=== PATIENT | male | born 1970 | race Caucasian/White ===

== ENCOUNTER 2021-01-08 05:59 | Emergency (ER) | payer SELFPAY ==
--- NOTE | 2021-01-08 06:26 | ER ---
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 Coronavirus screen: At this time, the client does not indicate any symptoms associated with coronavirus-19. Ebola Screen: No symptoms or risks identified at this time. Mechanism of Injury: No Mechanism of Injury. Initial Sepsis Screen: Does the patient meet any 2 criteria? No. Patient's initial sepsis screen is negative. Does the patient have a suspected source of infection? No. Patient's initial sepsis screen is negative. Risk Assessment: Do you want to hurt yourself or someone else? Patient reports no desire to harm self or others. Onset of symptoms was January 07, 2021. 06:13 Method Of Arrival: Ambulatory bb 06:13 Acuity: DENISE 2 bb Historical: - Allergies: 06:17 No Known Allergies; bb - Home Meds: 06:17 penicillian injections [Active]; bb - PMHx: 06:17 syphilis; bb - PSHx: 06:17 shoulder surgery; arm surgery; bb - Immunization history:: Adult Immunizations up to date. - Social history:: Smoking status: Patient denies any tobacco usage or history of. Patient/guardian denies using alcohol, street drugs. - Family history:: not pertinent. - Hospitalizations: : No recent hospitalization is reported. Screenin:25 Abuse screen: Denies threats or abuse. Denies injuries from another. Nutritional mg2 screening: No deficits noted. Tuberculosis screening: No symptoms or risk factors identified. Fall Risk None identified. Assessment: 06:20 General: Appears in no apparent distress. uncomfortable, Behavior is calm, cooperative, jb4 appropriate for age. Pain: Complains of pain in left eye Pain does not radiate. Pain currently is 9 out of 10 on a pain scale. Quality of pain is described as burning. Neuro: Level of Consciousness is awake, alert, obeys commands, Oriented to person, place, time, situation. Cardiovascular: Patient's skin is warm and dry. Respiratory: Airway is patent Respiratory effort is even, unlabored, Respiratory pattern is regular, symmetrical. GI: No signs and/or symptoms were reported involving the gastrointestinal system. : No signs and/or symptoms were reported regarding the genitourinary system. EENT: Eyes no drainage noted.. Sclera/Cornea are reddened in outer aspect of conjuctiva of left eye, iris of left eye and inner aspect of conjunctiva of left eye. Derm: Skin is intact, Skin is pink, warm \T\ dry. Musculoskeletal: Circulation, motion, and sensation intact. Range of motion: intact in all extremities. Vital Signs: 06:13 BP 126 / 87; Pulse 81; Resp 16 S; Temp 98.1(O); Pulse Ox 100% on R/A; Weight 81.65 kg bb (R); Height 6 ft. 0 in. (182.88 cm) (R); Pain 8/10; 06:13 Body Mass Index 24.41 (81.65 kg, 182.88 cm) bb ED Course: 06:03 Patient arrived in ED. cl3 06:10 Elver Ulloa MD is Attending Physician. rn 06:15 Triage completed. bb 06:17 Arm band placed on Patient placed in an exam room, on a stretcher, on pulse oximetry. bb 06:22 Diego Llanes, RN is Primary Nurse. jb4 06:26 Nicole Mcconnell MD is Referral Physician. rn 06:26 Patient has correct armband on for positive identification. mg2 06:26 No provider procedures requiring assistance completed. Patient did not have IV access mg2 during this emergency room visit. Administered Medications: No medications were administered Outcome: 06:26 Discharge ordered by . rn 06:36 Discharged to home ambulatory. mg2 06:36 Condition: stable 06:36 Discharge instructions given to patient, Instructed on discharge instructions, follow up and referral plans. medication usage, Demonstrated understanding of instructions, follow-up care, medications, Prescriptions given X 2. 06:37 Patient left the ED. mg2 Signatures: Emmy Awad RN RN bb Elver Ulloa MD MD rn Bryson, James, RN RN jb4 Francisco Dean RN RN mg2 Kassy Rasmussen cl3
--- NOTE | 2021-01-08 06:26 | EDPHYS ---
Physician Documentation [facility] Name: Johnny Gandhi Age: 51 yrs Sex: Male : 1970 Arrival Date: 01/08/2021 Time: 06:03 Bed 5 Private MD: ED Physician Elver Ulloa HPI: 01/08 06:20 This 51 yrs old Male presents to ER via Ambulatory with complaints of Eye rn Pain, Redness of Eye. 06:20 The patient is experiencing pain, redness, The patient sustained None. to the left eye, rn caused by an unknown mechanism. Onset: The symptoms/episode began/occurred last night. Duration: the symptoms are continuous. Aggravated by light, Alleviated by nothing. Patient does not utilize any form of vision correction. Severity of symptoms: At their worst the symptoms were moderate in the emergency department the symptoms are unchanged. The patient has not experienced similar symptoms in the past. Reports welding 2 days ago, felt fine, no trauma to eye, doesn't feel like got anything into eye, does not wear contacts. Reports most sensitive to light. Right eye ok. 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 . Historical: - Allergies: 06:17 No Known Allergies; bb - Home Meds: 06:17 penicillian injections [Active]; bb - PMHx: 06:17 syphilis; bb - PSHx: 06:17 shoulder surgery; arm surgery; bb - Immunization history:: Adult Immunizations up to date. - Social history:: Smoking status: Patient denies any tobacco usage or history of. Patient/guardian denies using alcohol, street drugs. - Family history:: not pertinent. - Hospitalizations: : No recent hospitalization is reported. ROS: 06:20 Constitutional: Negative for fever, chills, and weight loss, Eyes: + pain to left eye rn Exam: 06:20 Constitutional: This is a well developed, well nourished patient who is awake, alert, rn appears uncomfortable Head/Face: Normocephalic, atraumatic. Eyes: + clear drainage from left eye, no uptake of fluorescein, neg gwendolyn's, + hyperemic conjunctiva, no foreign body identified, very sensitive to light Vital Signs: 06:13 BP 126 / 87; Pulse 81; Resp 16 S; Temp 98.1(O); Pulse Ox 100% on R/A; Weight 81.65 kg bb (R); Height 6 ft. 0 in. (182.88 cm) (R); Pain 8/10; 06:13 Body Mass Index 24.41 (81.65 kg, 182.88 cm) bb MDM: 06:10 Patient medically screened. rn 06:20 Differential diagnosis: Corneal abrasion of Foreign body in Acute iritis of Acute rn glaucoma in fitter/welder's burn. 06:20 Data reviewed: vital signs, nurses notes, and as a result, I will discharge patient. rn Counseling: I had a detailed discussion with the patient and/or guardian regarding: the historical points, exam findings, and any diagnostic results supporting the discharge/admit diagnosis, the need for outpatient follow up, to return to the emergency department if symptoms worsen or persist or if there are any questions or concerns that arise at home. Response to treatment: the patient's symptoms have mildly improved after treatment, and as a result, I will discharge patient. Special discussion: I discussed with the patient/guardian in detail that at this point there is no indication for admission to the hospital. It is understood, however, that if the symptoms persist or worsen the patient needs to return immediately for re-evaluation. Based on the history and exam findings, there is no indication for further emergent testing or inpatient evaluation. I discussed with the patient/guardian the need to see the opthamologist for further evaluation of the symptoms. ED course: Minimal help from tetracaine, recommend f/u with ophthalmology today for more thorough exam. Will treat for possible iritis given no trauma and sever sensitivity to light. . Administered Medications: No medications were administered Disposition: 01/08/21 06:26 Discharged to Home. Impression: Acute iritis. - Condition is Stable. - Discharge Instructions: How to Use Eye Drops and Eye Ointments. - Prescriptions for ketorolac 0.5 % Ophthalmic drops - instill 1 drop by OPHTHALMIC route 4 times per day for 7 days; 1 bottle. prednisolone acetate 1 % Ophthalmic drops,suspension - instill 2 drop by OPHTHALMIC route 4 times per day for 10 days; 1 bottle. - Medication Reconciliation Form, Thank You Letter, Antibiotic Education, Prescription Opioid Use form. - Follow up: Nicole Mcconnell MD; When: As needed; Reason: Recheck today's complaints, Re-evaluation by your physician. - Problem is new. - Symptoms are unchanged. Signatures: Emmy Awad RN RN bb Elver Ulloa MD MD rn Gardose, Michele, RN RN mg2 Corrections: (The following items were deleted from the chart) 06:37 06:26 01/08/2021 06:26 Discharged to Home. Impression: Acute iritis. Condition is mg2 Stable. Forms are Medication Reconciliation Form, Thank You Letter, Antibiotic Education, Prescription Opioid Use. Follow up: Nicole Mcconnell; When: As needed; Reason: Recheck today's complaints, Re-evaluation by your physician. Problem is new. Symptoms are unchanged. rn
[2021-01-08] MEDS ORDERED: TETRACAINE HCL 0.5% 4ML OPTH ONE (06:27)
[2021-01-08] MEDS ORDERED: FLUORESCEIN SODIUM 1 MG/WRAP ONE (06:27)
[2021-01-08 06:42] VITALS: BP 126/87; TEMP 98.1; O2SAT 100
== END 2021-01-08 06:37 | disposition home or self-care (01) ==
LOC: ER 05:59
DX: H20.00 Unspecified acute and subacute iridocyclitis (principal)
CPT/HCPCS: 99283